=== PATIENT | male | born 1945 | race Caucasian/White ===

== ENCOUNTER 2018-04-22 10:10 | Outpatient (CLI) | payer MEDICARE ==
[2018-04-22 11:40] LABS: Hemoglobin 16.4 g/dL (14.0-18.0); Mean Corpuscular HGB CONC 33.2 g/dL (32.0-36.0); Mean Corpuscular Hemoglobin 29.4 pg (27.0-31.0); Mean Corpuscular Volume 88.5 fL (78.0-98.0); Mean Platelet Volume 7.1 fL (7.4-10.4); Platelet Count 163 thou/uL (130-400); RBC Distribution Width 12.1 % (11.5-14.5); Red Blood Cell (RBC) Count 5.57 mill/uL (4.70-6.10)
[2018-04-22 11:50] LABS: PTT 26.7 SEC (22.9-36.1)
[2018-04-22 12:04] LABS: Anion Gap 13 mmol/L (10-20); BUN (Urea Nitrogen) 17 mg/dL (8.4-25.7); Calc. Creatinine Clearance 0 mL/min (70-130); Calcium 9.6 mg/dL (7.8-10.44); Carbon Dioxide 29 mmol/L (23-31); Chloride 105 mmol/L (98-107); Estimated GFR-MDRD 90; Glucose 75 mg/dL (83-110); Potassium 4.5 mmol/L (3.5-5.1); Sodium 142 mmol/L (136-145)
--- NOTE | 2018-04-24 21:45 | EKG ---
Test Reason : Blood Pressure : / mmHG Vent. Rate : 063 BPM Atrial Rate : 063 BPM P-R Int : 152 ms QRS Dur : 080 ms QT Int : 400 ms P-R-T Axes : 053 021 009 degrees QTc Int : 409 ms Normal sinus rhythm Normal ECG No previous ECGs available Confirmed by Zack SOFIA ([id number]) on 04/24/2018 9:45:24 PM Referred By: MARIA ISABEL Confirmed By:Zack SOFIA
== END 2018-04-22 10:11 | disposition home or self-care (01) ==
LOC: LABBT 10:10
PROVIDERS: ATTEND Surgery
DX: Z01.818 Encounter for other preprocedural examination (principal); M48.061 Spinal stenosis, lumbar region without neurogenic claudication; M21.372 Foot drop, left foot
CPT/HCPCS: 80048; 85027; 85610; 85730; 93005; 93010

== ENCOUNTER 2018-04-23 05:43 | Day surgery (SDC) | payer MEDICARE ==
[2018-04-23] MEDS ORDERED: Thrombin 5000 UNITS/5 ML VIAL ONE ×2 (06:51→09:46)
[2018-04-23] MEDS ORDERED: Bacitracin Zinc Ointment 30 gm TUBE ONE (06:51)
[2018-04-23] MEDS ORDERED: Sodium Chloride 0.9% 10 ML ONE (06:59)
[2018-04-23] MEDS ORDERED: CEFAZOLIN 2 GM/50 ML BAG ONE (07:07)
[2018-04-23] MEDS ORDERED: Fentanyl 100 MCG/2 ML VIAL ONE ×2 (07:27→10:30)
[2018-04-23] MEDS ORDERED: Meperidine HCl/PF 25 MG/ML VIAL SLOW IVP PRN (11:14)
[2018-04-23] MEDS ORDERED: Morphine Sulfate 2 MG/ML SYRINGE SLOW IVP PRN (11:14)
[2018-04-23] MEDS ORDERED: HYDROmorphone 2 MG/ML VIAL SLOW IVP PRN (11:14)
[2018-04-23] MEDS ORDERED: Promethazine HCl 25 MG/ML VIAL SLOW IVP PRN (11:14)
[2018-04-23] MEDS ORDERED: PACU-Morphine 4MG/ML VIAL SLOW IVP PRN (11:14)
[2018-04-23] MEDS ORDERED: Ondansetron HCl/PF 4 MG/2 ML Vial IVP PRN (11:14)
[2018-04-23] MEDS ORDERED: Promethazine HCl 25 MG/ML VIAL IM PRN ×2 (11:14→11:17)
[2018-04-23] MEDS ORDERED: Morphine 2 MG/ML SYRINGE SLOW IVP PRN (11:17)
[2018-04-23] MEDS ORDERED: tiZANidine HCl 4 MG TAB PO PRN (11:17)
[2018-04-23] MEDS ORDERED: Fleet Enema 133 ML BOT PR PRN (11:17)
[2018-04-23] MEDS ORDERED: Milk Of Magnesia 30 ML UDCUP PO PRN (11:17)
[2018-04-23] MEDS ORDERED: Acetaminophen 325 MG TAB PO PRN (11:17)
[2018-04-23] MEDS ORDERED: Mag-Al 1200 mg/1200 mg/30 ML UDCUP PO PRN (11:17)
[2018-04-23] MEDS ORDERED: Bisacodyl 10 MG SUPP PR PRN (11:17)
[2018-04-23] MEDS ORDERED: traMADol HCl 50 MG TAB PO PRN (11:17)
[2018-04-23] MEDS ORDERED: hydrALAZINE 20 MG/ML VIAL ONE (11:25)
[2018-04-23] MEDS ORDERED: CEFAZOLIN/Water 2 GM/20 ML SYRINGE SLOW IVP SCH (11:30)
[2018-04-23] MEDS: HYDROcodone/Acetaminophen 7.5/325 mg Tablet PO PRN ×2 (13:35→19:53)
[2018-04-23 14:26] VITALS: BMI 30.7
[2018-04-23] MEDS: CEFAZOLIN 2 GM/50 ML-DEXTROSE 2 GM in Premix Bag 1 BAG IVPB SCH ×2 (16:00→23:07)
[2018-04-23] MEDS: Sodium Chloride 0.9% 1,000 ML IV SCH (16:13)
[2018-04-23] MEDS ORDERED: Ondansetron PF 4 MG/2 ML Vial ONE (16:18)
[2018-04-23] MEDS ORDERED: ePHEDrine/0.9% NaCl/PF SYRINGE 50 mg/10 ml ONE (16:18)
[2018-04-23] MEDS ORDERED: Metoclopramide HCl 10 MG/2 ML VIAL ONE (16:18)
[2018-04-23] MEDS ORDERED: Glycopyrrolate 0.2 MG/ML 5 ML SYRINGE ONE (16:18)
[2018-04-23] MEDS ORDERED: Lidocaine 1% PF 5 ML VIAL ONE (16:18)
[2018-04-23] MEDS ORDERED: Vecuronium 10 MG VIAL ONE (16:18)
[2018-04-23] MEDS ORDERED: PROPOFOL 200 MG/20 ML VIAL ONE (16:18)
[2018-04-23] MEDS ORDERED: Dexamethasone 20 MG/5 ML VIAL ONE (16:18)
--- NOTE | 2018-04-23 16:46 | OP ---
DATE OF PROCEDURE: 04/23/2018 [employer]: Saul Vazquez PA-C. PREPROCEDURE DIAGNOSES: Multilevel lumbar stenosis with low back, leg pain and right foot drop with disk extrusion. POSTPROCEDURE DIAGNOSES: Multilevel lumbar stenosis with low back, leg pain and right foot drop with disk extrusion. PROCEDURES PERFORMED: 1. Bilateral L2-L3 revision hemilaminotomy, foraminotomy. 2. L3-L4 and L4-L5 laminectomies, partial facetectomies and foraminotomies. 3. Exploration of the right side disk space and left side disk space with decompression of the traversing L4 nerve roots with diskectomy. 4. Use of operative microscope for microdissection. While the patient thought that he had had the L3-L4 surgery in the past, it was actually L2-L3 that was done in the past and this was evident intraoperatively and not as clear in the preoperative MRI. DESCRIPTION OF PROCEDURE: After informed consent was obtained from the patient, the patient was brought to OR 12. Proper patient pause and identification was carried out. He was placed in excellent general endotracheal anesthesia and positioned prone on the OR table. All appropriate points were padded. We identified the L2, L3, L4, and L5 dorsal spine. This region was sterilely cleansed, prepared, and draped. A small incision was identified over the L2-L3 segment. Proper patient pause and identification was carried out. The wound was then opened with a combination of sharp, monopolar, and blunt dissection. Localization confirmed at area of interest. We then identified prior surgical work at the L2-L3 segment. Bilateral L2-L3 revision hemilaminotomy, foraminotomies were performed. We then turned our attention to L3-L4 and L4-L5 laminectomies, partial facetectomies, and foraminotomies. There were portions of the dura that were quite thin from his chronic stenosis and one area over the right L4 nerve root which was the most compressed and extruded disk fragment was identified. It was quite thin and there was minimal amount of CSF leakage in this region. I think this was resultant of his significant compression and obviously clinically related to his footdrop. Using the microscope, we went head, working over the shoulder of traversing left L4 nerve root. Multiple large disk fragments were removed. We then turned our attention to the right side as well and disk material was removed there also. I suspected that the disk herniation came from the left side, but then went toward the center and compressed the traversing right L4 root, superimposed on his longstanding stenosis which was the culprit of his footdrop. We achieved excellent decompression of the L3, L4, and L5 nerve roots bilaterally following our decompression. Copious irrigation occurred throughout as did maximizing hemostasis. Hemostasis at this time was a bit challenging as the patient had just a few days before taken his aspirin. Nevertheless, we had excellent decompression. Copious irrigation again occurred throughout and the wound was then closed in anatomic layers following placement of DuraSeal and vancomycin powder. There was no evidence of any more spinal fluid leak. Job ID: [id number]
[2018-04-23] MEDS: Lisinopril 20 MG TAB PO SCH (19:53)
[2018-04-23] MEDS: Pregabalin 75 MG CAP PO SCH (19:54)
[2018-04-24] MEDS: Sodium Chloride 0.9% 1,000 ML IV SCH (01:42)
[2018-04-24] MEDS: HYDROcodone/Acetaminophen 7.5/325 mg Tablet PO PRN ×2 (02:22→07:13)
[2018-04-24] MEDS: Pregabalin 75 MG CAP PO SCH (08:11)
[2018-04-24] MEDS: Lisinopril 20 MG TAB PO SCH (08:11)
[2018-04-24] MEDS ORDERED: Prevnar 13-Val Conj/PF 0.5 ML SYRINGE IM ONE (09:00)
[2018-04-24] MEDS ORDERED: Amlodipine 5 MG TAB PO SCH (09:00)
--- NOTE | 2018-04-24 10:41 | PRG ---
DATE OF SERVICE: 04/24/2018 SUBJECTIVE: Mr. Marroquin is doing well, postoperatively day 1 from L2-L5 decompression and large L3-L4 diskectomy. He has had resolution in his leg pain. He even has trace contraction of his L4 mediated tibialis anterior. He is able to weakly extend at the toes as well. He has had minimal headaches that is not necessarily positional. We did have a small amount of CSF leakage intraoperatively, as his dura was quite thin in the region of the right L4 nerve root, where the disk extrusion pressed upon it. There had been no wound issues. We will plan for dismissal and we went over interim postoperative issues. Job ID: [id number]
[2018-04-24 11:55] VITALS: BP 148/77; TEMP 98.4
== END 2018-04-24 12:00 | disposition home or self-care (01) ==
LOC: SDC 05:43 → SURG A 11:17 → SDC 04-24 12:00
PROVIDERS: ATTEND Surgery
PROC: 01NB0ZZ Release Lumbar Nerve, Open Approach (ICD-10-PCS; principal; 2018-04-23)
PROC: 0ST20ZZ Resection of Lumbar Vertebral Disc, Open Approach (ICD-10-PCS; 2018-04-23)
DX: M48.061 Spinal stenosis, lumbar region without neurogenic claudication (principal); M51.26 Other intervertebral disc displacement, lumbar region; M21.371 Foot drop, right foot; Z79.82 Long term (current) use of aspirin; Z79.899 Other long term (current) drug therapy
CPT/HCPCS: 63042; 63047; 63048 ×2; 76001; 97139; G8978; G8979; G8980; L1930; J0131; J0360; J1100; J2001; J2405; J2704; J2765; J3010; J3370; J3490

== ENCOUNTER 2018-04-25 09:36 | Emergency (ER) | payer MEDICARE ==
--- NOTE | 2018-04-26 07:34 | CON ---
DATE OF CONSULTATION: This is a 20-minute subsequent patient evaluation, of which greater than 50% of the exam was spent counselling and coordinating the patient's care. Remainder of the exam was spent in reviewing the patient's medical records and formulation of treatment plan. CHIEF COMPLAINT: Wound drainage. HISTORY OF PRESENT ILLNESS: Mr. Marroquin is a pleasant 72-year-old male, who re-presents to [facility] having undergone multilevel lumbar laminectomies on 04/23/2018. The patient states overnight he has been experiencing lumbar wound drainage, consistent with a serosanguinous fluid. He is not currently taking any blood thinners. We did have a pinpoint leak of CSF, but this was closed with DuraSeal, and Valsalva maneuver was performed intraoperatively with no further evidence of CSF leak. The patient complaints of a dull headache behind the bilateral eyes, but he denies this being positional. He states he has resolution of his bilateral lower extremity symptoms. He does have some tenderness in the incision site, but this is consistent with his incision rather than any type of obvious wound infections. We have also explained to the patient and his that it takes roughly 17 to 21 days postop for pus to form. This was simply a serous drainage fluid collection from the postoperative bed. PHYSICAL EXAMINATION: The patient is awake, alert, and appropriate. He has full strength in bilateral lower extremities with the exception of significant weakness into the right dorsiflexion, consistent with his preoperative exam. There is a walker in the room. His incision is closed with interrupted Ethilon sutures. There is some scabbing attempting to form throughout the incision. There is no significant surrounding erythema. There is no significant swelling at the incision site. I cannot express any active drainage from the incision. The incision has been covered loosely with gauze and tape, and when uncovered, there is absolutely no drainage on the dressing. DIAGNOSIS: Status post multilevel lumbar laminectomies on 04/23/2018 with postoperative wound drainage. PLAN: I have discussed concerning signs and symptoms of possible CSF leak with the patient and his , and they certainly understand to monitor his symptoms. Otherwise, I have started him on a prophylactic course of Keflex. The patient and his will continue to monitor his symptoms and will call the office with an update on Sunday. Otherwise, the patient is recovering well postoperatively, and he certainly understands to call the office with questions or concerns, or re-present to the emergency room should things become progressively worse or should he develop significant postural headache. The patient and his were appreciative of the workup and again understand that time will improve. I have asked them to continue to change his dressing as needed with clean dry gauze and tape as many times as needed until the drainage improves. Job ID: [id number]
== END 2018-04-25 12:24 | disposition home or self-care (01) ==
LOC: ERS 09:36
DX: L76.22 Postprocedural hemorrhage of skin and subcutaneous tissue following other procedure (principal)
CPT/HCPCS: 99283

== ENCOUNTER 2018-12-10 09:04 | Outpatient (CLI) | payer MEDICARE ==
--- NOTE | 2018-12-10 09:34 | RAD ---
XR Hip Rt 2-3 View INDICATION: Arthritis of the right hip COMPARISON: None FINDINGS: Bones: No acute osseous abnormality. Hip joint: There is mild osteoarthrosis of the right hip SI joints and symphysis pubis: There is mild degenerative change of the symphysis pubis. Intrapelvic contents: Visualized bowel gas pattern is within normal limits. Surrounding soft tissues: Mild enthesopathic changes seen adjacent to the right ischial tuberosity. M ild enthesopathic changes seen off the anterior superior iliac spine. IMPRESSION: 1. 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
== END 2018-12-10 09:05 | disposition home or self-care (01) ==
LOC: RAD 09:04
PROVIDERS: ATTEND Specialist
DX: M16.11 Unilateral primary osteoarthritis, right hip (principal)

== ENCOUNTER 2021-03-25 09:28 | Outpatient (CLI) | payer MEDICARE | END 2021-03-25 09:29 | disposition home or self-care (01) | LOC: BICRAD 09:28 | PROVIDERS: ATTEND Nurse Practitioner Family | DX: M47.816 Spondylosis without myelopathy or radiculopathy, lumbar region (principal); Z98.890 Other specified postprocedural states | CPT/HCPCS: 72110 ==

== ENCOUNTER 2022-10-31 06:05 | Observation (INO) | payer MEDICARE ==
[2022-10-26 13:16] VITALS: BMI 27.0
[2022-10-31] MEDS ORDERED: Vancomycin 1 GM VIAL ONE (06:33)
[2022-10-31] MEDS ORDERED: Thrombin 5000 UNITS/5 ML VIAL ONE (06:33)
[2022-10-31] MEDS ORDERED: HYDROmorphone 0.5 MG/0.5 ML SYRINGE ONE (06:52)
[2022-10-31] MEDS ORDERED: fentaNYL PF 100 MCG/2 ML SYRINGE ONE (06:52)
[2022-10-31] MEDS ORDERED: CEFAZOLIN 2 GM VIAL ONE (07:12)
[2022-10-31] MEDS ORDERED: Sodium Chloride 0.9% 100 ML ONE (07:12)
[2022-10-31] MEDS ORDERED: NEOSTIGMINE 3 MG/3 ML SYR 3 MG/3 ML SYRINGE ONE (07:28)
[2022-10-31] MEDS ORDERED: ePHEDrine Sulfate 50 MG/10 ML VIAL ONE (07:28)
[2022-10-31] MEDS ORDERED: Lidocaine 1% PF 5 ML VIAL ONE (07:28)
[2022-10-31] MEDS ORDERED: Dexamethasone 20 MG/5 ML VIAL ONE (07:28)
[2022-10-31] MEDS ORDERED: Rocuronium Bromide 10 MG/ML (10ML VIAL) ONE (07:28)
[2022-10-31] MEDS ORDERED: Ondansetron PF 4 MG/2 ML Vial ONE (07:28)
[2022-10-31] MEDS ORDERED: Ketorolac Tromethamine 30 MG/ML VIAL ONE (07:28)
[2022-10-31] MEDS ORDERED: GLYCOPYRROLATE/PF 0.2 MG/ML VIAL ONE (07:28)
[2022-10-31] MEDS ORDERED: PROPOFOL 200 MG/20 ML VIAL ONE (07:28)
[2022-10-31] MEDS ORDERED: Rocuronium Bromide 50 MG/5 ML VIAL ONE (08:50)
[2022-10-31] MEDS ORDERED: Acetaminophen/Codeine 30-300mg Tablet PO PRN (09:39)
[2022-10-31] MEDS ORDERED: diphenhydrAMINE 25 MG CAP PO PRN (09:39)
[2022-10-31] MEDS ORDERED: Morphine 2 MG/ML VIAL SLOW IVP PRN (09:39)
[2022-10-31] MEDS ORDERED: Acetaminophen 325 MG TAB PO PRN (09:39)
[2022-10-31] MEDS ORDERED: traMADol HCl 50 MG TAB PO PRN (09:39)
[2022-10-31] MEDS ORDERED: tiZANidine HCl 4 MG TAB PO PRN (09:42)
[2022-10-31] MEDS ORDERED: Promethazine HCl 12.5 MG in Sodium Chloride 0.9% 50 ML IVPB PRN (09:42)
[2022-10-31] MEDS ORDERED: HYDROcodone/Acetaminophen 10/325 mg Tablet PO PRN (09:44)
[2022-10-31] MEDS ORDERED: hydrALAZINE 20 MG/ML VIAL SLOW IVP PRN (09:45)
[2022-10-31] MEDS ORDERED: Promethazine HCl 25 MG/ML VIAL IM PRN (09:51)
[2022-10-31] MEDS ORDERED: Morphine Sulfate 2 MG/ML SYRINGE SLOW IVP PRN (09:51)
[2022-10-31] MEDS ORDERED: HYDROmorphone 2 MG/ML VIAL SLOW IVP PRN (09:51)
[2022-10-31] MEDS ORDERED: PACU-Morphine 4MG/ML VIAL SLOW IVP PRN (09:51)
[2022-10-31] MEDS ORDERED: Ondansetron HCl/PF 4 MG/2 ML Vial IVP PRN (09:51)
[2022-10-31] MEDS ORDERED: fentaNYL 50 mcg/mL 1 mL Vial ONE (12:02)
[2022-10-31] MEDS: CEFAZOLIN 2 GM in Sodium Chloride 0.9% 100 ML IVPB SCH ×2 (15:30→21:55)
[2022-10-31] MEDS: Sodium Chloride 0.9% 1,000 ML IV SCH (15:39)
[2022-10-31] MEDS: Lisinopril 20 MG TAB PO SCH (21:55)
[2022-11-01] MEDS: Sodium Chloride 0.9% 1,000 ML IV SCH (00:14)
[2022-11-01 08:49] VITALS: BP 130/74; TEMP 97.8
[2022-11-01] MEDS ORDERED: Montelukast Sodium 10 mg Tablet PO SCH (09:00)
[2022-11-01] MEDS ORDERED: CeleCOXIB 100 MG CAP PO SCH (09:00)
[2022-11-01] MEDS ORDERED: Hydrochlorothiazide 25 MG TAB PO SCH (09:00)
[2022-11-01] MEDS ORDERED: Donepezil HCl 10 MG TAB PO SCH (09:00)
[2022-11-01] MEDS: Lisinopril 20 MG TAB PO SCH (09:19)
== END 2022-11-01 11:13 | disposition home or self-care (01) ==
LOC: SDC 06:05 → SJJU 09:48
PROVIDERS: ADMIT Surgery; ATTEND Surgery
PROC: 0SB40ZZ Excision of Lumbosacral Disc, Open Approach (ICD-10-PCS; principal; 2022-10-31)
DX: M51.17 Intervertebral disc disorders with radiculopathy, lumbosacral region (principal)
CPT/HCPCS: 63042; J3010; J3490; J1100; J1170; J1885; J2405; J2704; J3370